=== PATIENT | male | born 1960 | race African-American/Black ===

== ENCOUNTER → 2018-03-16 | Outpatient (CLI) | payer OTHER ==
[2018-03-02 07:00] VITALS: BP 125/75
[~2018-03-16] MED LIST: ACET-704 PO; AMLO5TAB10 PO; CITA20TA6 PO; CLIN300C8 PO; NAPR-695 PO; NICO1PAT25 TD
== END | disposition home or self-care (01) ==
LOC: PMGWOUND 10:04
PROVIDERS: ATTEND Emergency Medicine Undersea and Hyperbaric Medicine
DX: S61.011A Laceration without foreign body of right thumb without damage to nail, initial encounter (principal); I10 Essential (primary) hypertension; F32.9 Major depressive disorder, single episode, unspecified; Z87.891 Personal history of nicotine dependence; X58.XXXA Exposure to other specified factors, initial encounter; Y93.89 Activity, other specified; Y92.89 Other specified places as the place of occurrence of the external cause; Y99.8 Other external cause status
CPT/HCPCS: 97597

== ENCOUNTER → 2018-03-23 | Outpatient (CLI) | payer OTHER ==
[2018-03-02 07:00] VITALS: BP 125/75
[~2018-03-23] MED LIST changes: -AMLO5TAB10 PO; +AMLO5TAB7 PO
== END | disposition home or self-care (01) ==
LOC: PMGWOUND 09:46
PROVIDERS: ATTEND Emergency Medicine Undersea and Hyperbaric Medicine
DX: S61.001D Unspecified open wound of right thumb without damage to nail, subsequent encounter (principal); I10 Essential (primary) hypertension; F32.9 Major depressive disorder, single episode, unspecified; F39 Unspecified mood [affective] disorder; W23.1XXD Caught, crushed, jammed, or pinched between stationary objects, subsequent encounter; Z87.891 Personal history of nicotine dependence
CPT/HCPCS: 99213

== ENCOUNTER → 2018-03-30 | Outpatient (CLI) | payer OTHER ==
[2018-03-02 07:00] VITALS: BP 125/75
== END | disposition home or self-care (01) ==
LOC: PMGWOUND 11:01
PROVIDERS: ATTEND Nurse Practitioner Family
DX: S61.001D Unspecified open wound of right thumb without damage to nail, subsequent encounter (principal); I10 Essential (primary) hypertension; F32.9 Major depressive disorder, single episode, unspecified; F39 Unspecified mood [affective] disorder; Z87.891 Personal history of nicotine dependence; W23.0XXD Caught, crushed, jammed, or pinched between moving objects, subsequent encounter
CPT/HCPCS: 99213

== ENCOUNTER 2019-10-18 09:04 | Emergency (ER) | payer SELFPAY ==
[~2019-10-18] VITALS: Ht 167.6 cm; Wt 72.7 kg
[~2019-10-18 09:04] MED LIST changes: +AMLO5TAB10 PO; -AMLO5TAB7 PO
[2019-10-18] MEDS ORDERED: LIDO:MAALOX 1:1 20 ML SINGLE DOSE. SWSW ONE (09:30)
[2019-10-18] MEDS ORDERED: IV NORMAL SALINE 1000ML BAG 1,000 ML IV ONE (09:30)
[2019-10-18] MEDS ORDERED: ONDANSETRON PF 4 MG/2 ML VIAL. IV ONE (09:30)
[2019-10-18 09:46] LABS: CALCIUM 9.1 mg/dL (8.5-10.1); GFR 92.2; POTASSIUM 4.2 mmol/L (3.5-5.1)
[2019-10-18 09:52] LABS: ALBUMIN 3.2 g/dL (3.4-5.0); ALBUMIN/GLOBULIN RATIO 0.7 (1.0-1.7); TOTAL BILIRUBIN 0.6 mg/dL (0.2-1.0); TOTAL PROTEIN 8.1 g/dL (6.4-8.2)
[2019-10-18 09:58] LABS: BILIRUBIN,URINE SMALL (NEG); CLARITY,URINE CLEAR; COLOR,URINE AMBER; NITRITE,URINE NEGATIVE (NEG); PROTEIN,URINE NEGATIVE (NEG-TRACE)
[2019-10-18] MEDS ORDERED: IOHEXOL 300 MG/ML 100ML VIAL. IV ONE (10:00)
[2019-10-18] MEDS ORDERED: CONTRAST GIVEN. MC PRN (10:00)
[2019-10-18 10:03] LABS: BASO # 0.1 x10^3/uL (0.0-0.2); BASO % 1 % (0-3); EOS # 0.1 x10^3/uL (0.0-0.7); EOS % 1 % (0-3); HEMATOCRIT 38.1 % (39.0-53.0); HEMOGLOBIN 12.6 g/dL (13.0-17.5); LYMPH # 2.2 x10^3/uL (1.0-4.8); LYMPH % 30 % (24-48); MEAN CORPUSCULAR HEMOGLOBIN 35 pg (25-35); MEAN CORPUSCULAR HGB CONC 33 g/dL (31-37); MEAN CORPUSCULAR VOLUME 105 fL (79-100); MONO # 0.5 x10^3/uL (0.0-1.1); MONO % 7 % (0-9); NEUT # 4.4 x10^3/uL (1.8-7.7); NEUT % 61 % (31-73); PLATELET COUNT 319 x10^3/uL (140-400); RED BLOOD COUNT 3.64 x10^6/uL (4.30-5.70); RED CELL DISTRIBUTION WIDTH 13.1 % (11.5-14.5); WHITE BLOOD COUNT 7.3 x10^3/uL (4.0-11.0)
[2019-10-18 10:10] LABS: BARBITURATES NEG (NEG); BENZODIAZEPINES NEG (NEG); CANNABINOIDS NEG (NEG); COCAINE NEG (NEG); METHADONE NEG (NEG); OPIATES NEG (NEG); PHENCYCLIDINE NEG (NEG)
[2019-10-18 10:14] LABS: AMPHETAMINE/METHAMPHETAMINE NEG (NEG)
[2019-10-18 10:32] LABS: SQUAMOUS EPITHELIAL CELL,UR OCC /LPF
[2019-10-18 10:33] LABS: BACTERIA,URINE 0 /HPF (0-FEW); HYALINE CASTS, URINE FEW /HPF; RBC,URINE OCC /HPF (0-2); WBC,URINE 0 /HPF (0-4)
--- NOTE | 2019-10-18 10:39 | RAD ---
EXAM: CT ABDOMEN/PELVIS WITH CONTRAST. HISTORY: Abdominal pain. TECHNIQUE: Computed tomography of the abdomen and pelvis was performed after the intravenous administration of iodinated contrast. One or more of the following individualized dose reduction techniques were utilized for this examination: 1. Automated exposure control. 2. Adjustment of the mA and/or kV according to patient size. 3. Use of iterative reconstruction technique. COMPARISON: 11/02/2014. FINDINGS: Lung windows through the visualized portions of the bases reveal a stable 4 mm nodule in the left lower lobe, likely benign. Bone windows reveal no suspicious lesions. Pancreatic parenchymal calcifications are consistent with chronic pancreatitis. There is diffuse dilatation and irregularity of the pancreatic duct throughout the body and tail. A distal pancreatic ductal calculus measures 10 x 6 mm. There is mild inflammatory change about the pancreas diffusely. There is no drainable collection. The pancreatic parenchyma is diffusely expanded in comparison with the prior study, but no focal mass is seen. The portosplenic confluence is severely compressed but remains patent. The spleen has been resected. The splenic vein is not patent. There is mild cortical scarring at the left renal upper pole.. The right kidney is unremarkable. The adrenal glands, gallbladder, and liver are unremarkable. There are no pathologically enlarged lymph nodes. There is no small bowel obstruction. There is no evidence of appendicitis. Ossification along the right iliac crest is likely secondary to a chronic avulsion injury. IMPRESSION: 1. Findings consistent with acute on chronic pancreatitis. 2. Diffuse dilatation of the pancreatic duct and pancreatic parenchymal edema results in mass effect that severely compresses the portosplenic confluence. No focal mass is seen. Electronically signed by: Garfield Davis MD (10/18/2019 10:36 AM) [id number]
--- NOTE | 2019-10-18 10:51 | PHYS DOC ---
Past Medical History Past Medical History: COPD, Pancreatitis Past Surgical History: Other Additional Past Surgical Histo: ABDOMINAL SX FOLLOWING TRAUMA Smoking Status: Current Every Day Smoker Additional Information: 0.5 PPD Alcohol Use: Occasionally Additional Information: BEER ON WEEKENDS Drug Use: None General Adult EDM: Chief Complaint: ABDOMINAL PAIN HPI: HPI: 59-year-old male alcohol abuser who states he drinks a lot of beer weekly but not every day presents with progressive abdominal discomfort. He states this is been getting worse over the last 2 weeks. He denies any melena or hematemesis. He does state he has had a history of pancreatitis in the past. He has had no fever chills or sweats. He denies any upper respiratory symptoms including cough congestion or hemoptysis. [] Review of Systems: Review of Systems: Constitutional: Denies fever or chills. [] Eyes: Denies change in visual acuity. [] HENT: Denies nasal congestion or sore throat. [] Respiratory: Denies cough or shortness of breath. [] Cardiovascular: Denies chest pain or edema. [] GI: Per HPI. [] : Denies dysuria. [] Musculoskeletal: Denies back pain or joint pain. [] Integument: Denies rash. [] Neurologic: Denies headache, focal weakness or sensory changes. [] Endocrine: Denies polyuria or polydipsia. [] Lymphatic: Denies swollen glands. [] Psychiatric: Denies depression or anxiety. [] Heart Score: Risk Factors: Risk Factors: DM, Current or recent (<one month) smoker, HTN, HLP, family history of CAD, obesity. Risk Scores: Score 0 - 3: 2.5% MACE over next 6 weeks - Discharge Home Score 4 - 6: 20.3% MACE over next 6 weeks - Admit for Clinical Observation Score 7 - 10: 72.7% MACE over next 6 weeks - Early Invasive Strategies Current Medications: Current Medications Medications (Trade) Dose Ordered Sig/Neida Start Time Stop Time Status Last Admin Dose Admin Info (CONTRAST GIVEN -- Rx MONITORING) 1 each PRN DAILY PRN 10/18/19 10:00 10/20/19 09:59 Iohexol (Omnipaque 300 Mg/ml) 75 ml 1X ONCE 10/18/19 10:00 10/18/19 10:01 DC 10/18/19 10:00 75 ML Multi-Ingredient Mouthwash/Gargle (Gi Cocktail) 20 ml 1X ONCE 10/18/19 09:30 10/18/19 09:31 DC 10/18/19 09:45 20 ML Ondansetron HCl (Zofran) 4 mg 1X ONCE 10/18/19 09:30 10/18/19 09:31 DC 10/18/19 09:46 4 MG Sodium Chloride 1,000 ml @ 1,000 mls/hr 1X ONCE 10/18/19 09:30 10/18/19 10:29 DC 10/18/19 09:46 1,000 MLS/HR Allergies: Allergies: Allergies Coded Allergies Type Severity Reaction Last Updated Verified No Known Drug Allergies 11/02/14 No Physical Exam: PE: Constitutional: Well developed, well nourished, no acute distress, non-toxic appearance. [] HENT: Normocephalic, atraumatic, bilateral external ears normal, oropharynx moist, no oral exudates, nose normal. [] Eyes: PERRLA, EOMI, conjunctiva normal, no discharge. [] Neck: Normal range of motion, no tenderness, supple, no stridor. [] Cardiovascular:Heart rate regular rhythm, no murmur [] Lungs & Thorax: Bilateral breath sounds clear to auscultation [] Abdomen: Diffuse tender to palp no rebound or guarding bowel sounds x4 [] Skin: Warm, dry, no erythema, no rash. [] Back: No tenderness, no CVA tenderness. [] Extremities: No tenderness, no cyanosis, no clubbing, ROM intact, no edema. [] Neurologic: Alert and oriented X 3, normal motor function, normal sensory function, no focal deficits noted. [] Psychologic: Affect normal, judgement normal, mood normal. [] Current Patient Data: Labs: Laboratory Tests Test 10/18/19 09:10 10/18/19 09:24 Urine Collection Type Void Urine Color Alesia Urine Clarity Clear Urine pH 6.0 (<5.0-8.0) Urine Specific Unity >=1.030 (1.000-1.030) Urine Protein Negative mg/dL (NEG-TRACE) Urine Glucose (UA) Negative mg/dL (NEG) Urine Ketones (Stick) Negative mg/dL (NEG) Urine Blood Negative (NEG) Urine Nitrite Negative (NEG) Urine Bilirubin Small (NEG) Urine Urobilinogen Dipstick 1.0 mg/dL (0.2 mg/dL) Urine Leukocyte Esterase Negative (NEG) Urine RBC Occ /HPF (0-2) Urine WBC 0 /HPF (0-4) Urine Squamous Epithelial Cells Occ /LPF Urine Bacteria 0 /HPF (0-FEW) Urine Hyaline Casts Few /HPF Urine Mucus Mod /LPF Urine Opiates Screen Neg (NEG) Urine Methadone Screen Neg (NEG) Urine Barbiturates Neg (NEG) Urine Phencyclidine Screen Neg (NEG) Urine Amphetamine/Methamphetamine Neg (NEG) Urine Benzodiazepines Screen Neg (NEG) Urine Cocaine Screen Neg (NEG) Urine Cannabinoids Screen Neg (NEG) Urine Ethyl Alcohol Neg (NEG) White Blood Count 7.3 x10^3/uL (4.0-11.0) Red Blood Count 3.64 x10^6/uL (4.30-5.70) L Hemoglobin 12.6 g/dL (13.0-17.5) L Hematocrit 38.1 % (39.0-53.0) L Mean Corpuscular Volume 105 fL (79-100) H Mean Corpuscular Hemoglobin 35 pg (25-35) Mean Corpuscular Hemoglobin Concent 33 g/dL (31-37) Red Cell Distribution Width 13.1 % (11.5-14.5) Platelet Count 319 x10^3/uL (140-400) Neutrophils (%) (Auto) 61 % (31-73) Lymphocytes (%) (Auto) 30 % (24-48) Monocytes (%) (Auto) 7 % (0-9) Eosinophils (%) (Auto) 1 % (0-3) Basophils (%) (Auto) 1 % (0-3) Neutrophils # (Auto) 4.4 x10^3/uL (1.8-7.7) Lymphocytes # (Auto) 2.2 x10^3/uL (1.0-4.8) Monocytes # (Auto) 0.5 x10^3/uL (0.0-1.1) Eosinophils # (Auto) 0.1 x10^3/uL (0.0-0.7) Basophils # (Auto) 0.1 x10^3/uL (0.0-0.2) Platelet Estimate Pending Sodium Level 138 mmol/L (136-145) Potassium Level 4.2 mmol/L (3.5-5.1) Chloride Level 105 mmol/L (98-107) Carbon Dioxide Level 22 mmol/L (21-32) Anion Gap 11 (6-14) Blood Urea Nitrogen 16 mg/dL (8-26) Creatinine 1.0 mg/dL (0.7-1.3) Estimated GFR (Cockcroft-Gault) 92.2 BUN/Creatinine Ratio 16 (6-20) Glucose Level 105 mg/dL (70-99) H Calcium Level 9.1 mg/dL (8.5-10.1) Total Bilirubin 0.6 mg/dL (0.2-1.0) Aspartate Amino Transferase (AST) 21 U/L (15-37) Alanine Aminotransferase (ALT) 18 U/L (16-63) Alkaline Phosphatase 119 U/L (46-116) H Troponin I Quantitative < 0.017 ng/mL (0.000-0.055) Total Protein 8.1 g/dL (6.4-8.2) Albumin 3.2 g/dL (3.4-5.0) L Albumin/Globulin Ratio 0.7 (1.0-1.7) L Lipase 673 U/L (73-393) H Ethyl Alcohol Level < 10 mg/dL (0-10) Laboratory Tests 10/18/19 09:24 Laboratory Tests 10/18/19 09:24 Vital Signs: Vital Signs Date Time Temp Pulse Resp B/P (MAP) Pulse Ox O2 Delivery O2 Flow Rate FiO2 10/18/19 10:05 155/72 (99) Room Air 10/18/19 09:47 66 18 100 10/18/19 09:11 97.9 97.9 EKG: EKG: EKG: Normal sinus rhythm rate of [address]-T changes no obvious ischemic ST-T changes [] Radiology/Procedures: Radiology/Procedures: [] Impression: PROCEDURE: CT ABD PELV W/ IV CONTRST ONLY EXAM: CT ABDOMEN/PELVIS WITH CONTRAST. HISTORY: Abdominal pain. TECHNIQUE: Computed tomography of the abdomen and pelvis was performed after the intravenous administration of iodinated contrast. One or more of the following individualized dose reduction techniques were utilized for this examination: 1. Automated exposure control. 2. Adjustment of the mA and/or kV according to patient size. 3. Use of iterative reconstruction technique. COMPARISON: 11/02/2014. FINDINGS: Lung windows through the visualized portions of the bases reveal a stable 4 mm nodule in the left lower lobe, likely benign. Bone windows reveal no suspicious lesions. Pancreatic parenchymal calcifications are consistent with chronic pancreatitis. There is diffuse dilatation and irregularity of the pancreatic duct throughout the body and tail. A distal pancreatic ductal calculus measures 10 x 6 mm. There is mild inflammatory change about the pancreas diffusely. There is no drainable collection. The pancreatic parenchyma is diffusely expanded in comparison with the prior study, but no focal mass is seen. The portosplenic confluence is severely compressed but remains patent. The spleen has been resected. The splenic vein is not patent. There is mild cortical scarring at the left renal upper pole.. The right kidney is unremarkable. The adrenal glands, gallbladder, and liver are unremarkable. There are no pathologically enlarged lymph nodes. There is no small bowel obstruction. There is no evidence of appendicitis. Ossification along the right iliac crest is likely secondary to a chronic avulsion injury. IMPRESSION: 1. Findings consistent with acute on chronic pancreatitis. 2. Diffuse dilatation of the pancreatic duct and pancreatic parenchymal edema results in mass effect that severely compresses the portosplenic confluence. No focal mass is seen. Course & Med Decision Making: Course & Med Decision Making Pertinent Labs and Imaging studies reviewed. (See chart for details) [ED course: Evaluation reveals a 59-year-old male drinker with abdominal pain. He has an elevated lipase of [address] scan shows an edematous pancreas consistent with acute on chronic pancreatitis. Patient was given IV fluids pain and nausea medicine during his stay in the department. We will go ahead and keep the patient overnight to try to cool his abdominal pain off. Dragon Disclaimer: Dragon Disclaimer: This electronic medical record was generated, in whole or in part, using a voice recognition dictation system. Departure Departure Impression: Primary Impression: Pancreatitis Qualified Codes: K85.20 - Alcohol induced acute pancreatitis without necros is or infection Disposition: ADMITTED INPATIENT Admitting Physician: VIRGINIAS Condition: STABLE Referrals: NO PCP (PCP) Justicifation of Admission Dx: Justifications for Admission: Justification of Admission Dx: Yes Comments: Acute pancreatitis PORTIA GUIDO DO Oct 18, 2019 10:51
[2019-10-18] MEDS ORDERED: fentaNYL PF VIAL 100 MCG/2 ML VIAL IV ONE (11:00)
[2019-10-18 11:05] VITALS: BP 136/86
[2019-10-18 14:31] LABS: PLT ESTIMATE ADEQUATE (ADEQUATE)
--- NOTE | 2019-10-19 07:53 | EKG ---
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
== END 2019-10-18 11:51 | disposition left against medical advice (07) ==
LOC: ER 09:04
DX: K85.20 Alcohol induced acute pancreatitis without necrosis or infection (principal); Y90.0 Blood alcohol level of less than 20 mg/100 ml; J44.9 Chronic obstructive pulmonary disease, unspecified; F17.200 Nicotine dependence, unspecified, uncomplicated
CPT/HCPCS: 36415; 74177; 80053; 80307; 81001; 83690; 84484; 85025; 93005; 96361; 96374; 99285; G0480; J2405; J7030; Q9967

== ENCOUNTER 2020-09-01 13:16 | Emergency (ER) | payer SELFPAY ==
[~2020-09-01] VITALS: Ht 167.6 cm; Wt 63.6 kg
[~2020-09-01 13:16] MED LIST changes: +AMLO-186 PO; -AMLO5TAB10 PO; -CLIN300C8 PO; +CLIN300C9 PO
[2020-09-01 13:19] VITALS: BP 141/75
[2020-09-01] MEDS ORDERED: LIDOCAINE 2% Multi-Dose 20 ML VIAL. IJ ONE (13:30)
[2020-09-01] MEDS ORDERED: HYDROcodone/APAP 7.5/325MG 1 TAB TABLET PO ONE (13:30)
--- NOTE | 2020-09-01 14:08 | RAD ---
EXAM: Right small finger, 3 views. HISTORY: Amputation. COMPARISON: None. FINDINGS: 3 views of the right small finger are obtained. There has been amputation of the tuft of th e fifth distal phalanx and overlying soft tissues. There is a tiny soft tissue calcification within t he proximal fifth phalanx. There is no radiodense foreign body. There is widening of the scapholunate joint space likely due to chronic scapholunate ligament injury. IMPRESSION: 1. Amputation of the tuft of the fifth distal phalanx and overlying soft tissues. 2. 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 Electronically signed by: Louise Sanz MD (09/01/2020 2:06 PM) [id number]
[2020-09-01] MEDS ORDERED: DIPH,PERTUSS(ACELL),TET VAC/PF 0.5 ML SYRINGE. VAX IM ONE (14:45)
--- NOTE | 2020-09-01 14:50 | ED.ADGEN ---
Past Medical History Past Medical History: COPD, Hypertension, Pancreatitis Past Surgical History: Other Additional Past Surgical Histo: ABDOMINAL SX FOLLOWING TRAUMA Smoking Status: Current Every Day Smoker Additional Information: 0.5 PPD Alcohol Use: Occasionally Drug Use: None General Adult EDM: Chief Complaint: FINGER INJURY HPI: HPI: Patient is a 59 year old male presenting with crush injury amputation of distal right pinky finger. Patient was helping his neighbor for Bridge when it shot on his finger. No other injuries. States otherwise been well. Last tetanus greater than 5 years ago. Review of Systems: Review of Systems: All other systems within normal limits except for as noted in the HPI Current Medications: Current Medications Medications (Trade) Dose Ordered Sig/Neida Start Time Stop Time Status Last Admin Dose Admin Acetaminophen/ Hydrocodone Bitart (Lortab 7.5/325) 1 tab 1X ONCE 09/01/20 13:30 09/01/20 13:31 DC 09/01/20 13:38 1 TAB Bupivacaine HCl (Sensorcaine-Mpf 0.25%) 10 ml 1X ONCE 09/01/20 15:00 09/01/20 15:01 DC Diphtheria/ Tetanus/Acell Pertussis (ADACEL TDap SYRINGE) 0.5 ml ONCE ONCE 09/01/20 14:45 09/01/20 14:46 DC 09/01/20 14:56 0.5 ML Lidocaine HCl (Lidocaine 2% 20ml Vial) 20 ml 1X ONCE 09/01/20 13:30 09/01/20 13:31 DC 09/01/20 13:38 20 ML Allergies: Allergies: Allergies Coded Allergies Type Severity Reaction Last Updated Verified No Known Drug Allergies 11/02/14 No Physical Exam: PE: Constitutional: Well developed, well nourished, no acute distress, non-toxic appearance. [] HENT: Normocephalic, atraumatic, bilateral external ears normal, nose normal. [] Eyes: PERRLA, conjunctiva normal, no discharge. [] Neck: No rigidity, supple, no stridor. [] Cardiovascular: Regular rate and rhythm, brisk cap refill [] Lungs & Thorax: Non labored symmetric respirations, no tachypnea or respiratory distress [] Abdomen: Soft, nondistended. Skin: Warm, dry, no erythema, no rash. [] Back: Unremarkable Extremities: No deformities, range of motion grossly intact, no lower extremity edema. Degloving of distal tip of right fifth finger with approximately 5 mm of exposed bone, nailbed avulsed in zone II [] Neurologic: Alert and oriented X 3, no focal deficits noted. [] Psychologic: Affect normal, judgement normal, mood normal. [] Current Patient Data: Vital Signs: Vital Signs Date Time Temp Pulse Resp B/P (MAP) Pulse Ox O2 Delivery O2 Flow Rate FiO2 09/01/20 14:08 21 95 Room Air 09/01/20 13:19 98.7 86 141/75 (97) 98.7 EKG: EKG: [] Heart Score: C/O Chest Pain: No Risk Factors: Risk Factors: DM, Current or recent (<one month) smoker, HTN, HLP, family history of CAD, obesity. Risk Scores: Score 0 - 3: 2.5% MACE over next 6 weeks - Discharge Home Score 4 - 6: 20.3% MACE over next 6 weeks - Admit for Clinical Observation Score 7 - 10: 72.7% MACE over next 6 weeks - Early Invasive Strategies Radiology/Procedures: Radiology/Procedures: [facility] [address] [place] [address] IMAGING REPORT Signed PATIENT: ALPHONSE QUEVEDO ACCOUNT: [id number] : 1960 LOCATION: ER AGE: 59 SEX: M EXAM STATUS: PRE ER ORD. PHYSICIAN: KEIRA KEARNEY MD REASON: amputation DISTAL PHALANX OF 5TH DIGIT PROCEDURE: FINGER(S) RIGHT EXAM: Right small finger, 3 views. HISTORY: Amputation. COMPARISON: None. FINDINGS: 3 views of the right small finger are obtained. There has been amputation of the tuft of the fifth distal phalanx and overlying soft tissues. There is a tiny soft tissue calcification within the proximal fifth phalanx. There is no radiodense foreign body. There is widening of the scapholunate joint space likely due to chronic scapholunate ligament injury. IMPRESSION: 1. Amputation of the tuft of the fifth distal phalanx and overlying soft tissues. 2. 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 Electronically signed by: Louise Sanz MD (09/01/2020 2:06 PM) [id number] DICTATED and SIGNED BY: LOUISE SANZ MD DATE: 09/01/20 [id number] [] Course & Med Decision Making: Course & Med Decision Making Consulted to orthopedics regarding definitive treatment plan. I agree that the bone that is exposed will need to be rongeured and due to crush mechanism likely better to leave open with wound dressing rather than flap closure. Finger anesthetized with a digital block with 2% lidocaine and 0.25% Marcaine. Wound cleaned and irrigated. Approximately 5 to 6 mm of exposed bone removed with rongeur. No complications. Wound care was consulted to ensure follow-up, wound care provider came to emergency department to dress wound and provide patient follow-up care planning. Jen Disclaimer: Jen Disclaimer: This electronic medical record was generated, in whole or in part, using a voice recognition dictation system. Departure Departure Impression: Primary Impression: Traumatic amputation of fingertip Disposition: HOME / SELF CARE / HOMELESS Condition: STABLE Referrals: NO PCP (PCP) Patient Instructions: Fingertip Injuries and Amputations Additional Instructions: [facility] [address], [address] [place] [address] Scripts Hydrocodone Bit/Acetaminophen (HYDROCODONE-APAP 5-325 ) 1 Tab Tablet 1 TAB PO PRN Q6HRS PRN for PAIN for 5 Days, #15 TAB 0 Refills Prov: KEIRA KEARNEY MD 09/01/20 Doxycycline Hyclate (DOXYCYCLINE HYCLATE) 100 Mg Capsule 1 CAP PO BID for antibiotic for 7 Days, #14 CAP take with food Prov: KEIRA KEARNEY MD 09/01/20 KEIRA KEARNEY MD Sep 01, 2020 14:50
[2020-09-01] MEDS ORDERED: BUPIVACAINE MPF 0.25% 10 ML VIAL. IJ ONE (15:00)
[2020-09-01] MEDS ORDERED: DOXY100C2 PO ×2 (15:36→15:39)
[2020-09-01] MEDS ORDERED: HYDR-2759 PO (15:36)
[2020-09-01] MEDS ORDERED: HYDR-2761 PO (15:39)
== END 2020-09-01 16:08 | disposition home or self-care (01) ==
LOC: ER 13:16
DX: S68.116A Complete traumatic metacarpophalangeal amputation of right little finger, initial encounter (principal); J44.9 Chronic obstructive pulmonary disease, unspecified; I10 Essential (primary) hypertension; F17.200 Nicotine dependence, unspecified, uncomplicated; X58.XXXA Exposure to other specified factors, initial encounter; Y93.89 Activity, other specified; Y92.89 Other specified places as the place of occurrence of the external cause; Y99.8 Other external cause status
CPT/HCPCS: 29130; 73140; 90471; 90715; 99283; A4565